=== PATIENT | male | born 1975 | race Two or more races ===

== ENCOUNTER 2018-06-24 11:21 | Emergency (ER) | payer MEDICAID ==
[~2018-06-24] VITALS: Ht 172.7 cm; Wt 99.8 kg
[~2018-06-24 11:21] MED LIST: NKM
[2018-06-24 11:25] VITALS: BP 138/89
--- NOTE | 2018-06-24 12:17 | Diagnostic Imaging Report ---
Indication: Headache. Head trauma Technique: Contiguous 5 mm thick transaxial imaging of the head obtained in a Siemens Sensation [address] scanner. Soft tissue and bone windows generated. Automatic Exposure Control was utilized. Total Dose length Product (DLP): 1425.[address] Dose Index Volume (CTDIvol): 70.38 mGy Comparison: none Findings: The size and configuration of the cortical sulci, basal cisterns, and ventricles are within normal limits for age. There is no mass effect, midline shift, or edema identified. There is no evidence of acute hemorrhage or abnormal intra-axial or extra-axial fluid collections. The bones and soft tissues are unremarkable. Impression: No mass effect, edema or acute bleed. The CT scanner at [facility] is accredited by the [employer] and the scans are performed using dose optimization techniques as appropriate to a performed exam including Automatic Exposure control.
[2018-06-24] MEDS ORDERED: IBUPROFEN600 MG ORAL (12:40)
[2018-06-24] MEDS ORDERED: ROBAXIN-750750 MG PO (12:40)
[2018-06-24 13:13] VITALS: BP 119/69
[2018-06-24 13:14] VITALS: BP 119/69
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
== END 2018-06-24 13:15 | disposition home or self-care (01) ==
LOC: EDBD 11:21 → EMR 13:00
DX: S01.01XA Laceration without foreign body of scalp, initial encounter (principal); S09.90XA Unspecified injury of head, initial encounter; V53.5XXA Driver of pick-up truck or van injured in collision with car, pick-up truck or van in traffic accident, initial encounter; Y92.488 Other paved roadways as the place of occurrence of the external cause
CPT/HCPCS: 70450; 99284